=== PATIENT | female | born 1975 | race Caucasian/White ===

== ENCOUNTER 2024-08-17 17:53 | Emergency (ER) | payer MEDICAID, SELFPAY ==
[2024-08-17 17:55] VITALS: BP 136/102; PULSE 96; RESP 16; TEMP 35.8; O2SAT 97; BMI 40.4
== END 2024-08-17 20:40 | disposition left against medical advice (07) ==
LOC: ED 20:43
DX: Z00.00 Encounter for general adult medical examination without abnormal findings (principal)